=== PATIENT | male | born 2000 | race Caucasian/White ===

== ENCOUNTER 2022-04-20 00:38 | Emergency (ER) | payer OTHER, SELFPAY ==
[2022-04-20 01:07] VITALS: BP 144/87; PULSE 102; RESP 20; TEMP 36.9; O2SAT 98
[2022-04-20 02:28] VITALS: BP 144/87; PULSE 102; RESP 20; TEMP 36.9; O2SAT 98; BMI 39.8
== END 2022-04-20 03:36 | disposition left against medical advice (07) ==
PROVIDERS: Emergency Provider Emergency Medicine; PCP Family Medicine
DX: R10.9 Unspecified abdominal pain (principal); G43.909 Migraine, unspecified, not intractable, without status migrainosus
CPT/HCPCS: 99281; 99282

== ENCOUNTER 2023-01-15 05:03 | Emergency (ER) | payer OTHER, SELFPAY ==
[2023-01-15 05:35] VITALS: BP 134/94; PULSE 110; RESP 16; TEMP 37.1; O2SAT 100; BMI 34.0
== END 2023-01-15 06:29 | disposition left against medical advice (07) ==
PROVIDERS: Emergency Provider Emergency Medicine
DX: R30.0 Dysuria (principal); R10.13 Epigastric pain
CPT/HCPCS: 99282